=== PATIENT | male | born 1980 | race Caucasian/White ===

== ENCOUNTER 2016-12-24 18:43 | Emergency (ER) | payer SELFPAY ==
[2016-12-24] MEDS ORDERED: IBUPROFEN 800 MG TABLET PO ONE (19:22)
[2016-12-24] MEDS ORDERED: ACETAMINOPHEN 325 MG TABLET PO ONE (19:23)
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
[2016-12-24] MEDS ORDERED: HYDROCODONE/ACETAMINOPHEN 5-325 MG 6 TAB/DSPK PO PRN (21:06)
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
[2016-12-24 21:56] VITALS: BP 132/74
== END 2016-12-24 21:30 | disposition home or self-care (01) ==
LOC: ER 18:43
DX: T23.241A Burn of second degree of multiple right fingers (nail), including thumb, initial encounter (principal); M79.641 Pain in right hand; X19.XXXA Contact with other heat and hot substances, initial encounter; Y93.89 Activity, other specified; R03.0 Elevated blood-pressure reading, without diagnosis of hypertension
CPT/HCPCS: 99283